=== PATIENT | female | born 2005 | race Caucasian/White ===

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

== ENCOUNTER 2025-01-23 12:17 | Outpatient (CLI) | payer OTHER, SELFPAY | END 2025-01-23 12:18 | disposition home or self-care (01) | LOC: NFLDREF 01-26 06:59 | PROVIDERS: Visit Provider Obstetrics & Gynecology | DX: Z34.03 Encounter for supervision of normal first pregnancy, third trimester (principal) | CPT/HCPCS: 86592 ==

== ENCOUNTER 2025-03-18 10:17 | Outpatient (CLI) | payer OTHER, SELFPAY | END 2025-03-18 10:18 | disposition home or self-care (01) | LOC: NFLDREF 03-19 15:52 | PROVIDERS: Visit Provider Midwife | DX: Z34.03 Encounter for supervision of normal first pregnancy, third trimester (principal) | CPT/HCPCS: 87081; 87653 ==

== ENCOUNTER 2025-03-30 06:46 | Inpatient (IN) | payer OTHER, SELFPAY ==
[2025-03-30] VITALS (58 sets, daily range): BP systolic 117–135; BP diastolic 59–85; PULSE 66–116; RESP 16–22; TEMP 36.4–36.9; O2SAT 91–100; BMI 31.1
[2025-03-30 06:36] LABS: Amnisure Rom* POSITIVE
--- NOTE | 2025-03-30 08:00 | P.LDBA_ITS ---
Subjective History of Present Illness Date Seen: 03/30/25 Narrative: Patient is being admitted to Labor and Delivery for SROM at 0355. She is GBS positive and declining antibiotics at this time, has signed a declination form. She is a 19 year old at 38.1 weeks gestation. Her full history and physical was dictated by Hodan Dukes CNM on 03/25/25. Please see this for details. Specific Issues/Plans G 1 P 0 It is a boy! H&P 03/25/25 by Hodan Dukes CNM Fiance: Gilbert Getting soon! Hep B nonimmune. Discuss at visit 12/07/2024 # Iron Deficiency Anemia Hgb 10.1. Ferritin 6.8. Rec. qod iron supplement. recheck hgb: 11.3 wnl #Anxiety and Depression. Reportedly stable on Lexapro. Lexapro increased to 20 mg QD on 12/07/24 Flu: 10/12/2024 Covid: Declined. Tdap: OB - Problem Based A/P Additional Plan (1) SROM (spontaneous rupture of membranes): Status: Acute (2) Pain during labor: Status: Acute (3) 38 weeks gestation of : Status: Acute Plan Assessment:?? at 38.1 weeks gestation?? GBS positive? Patient is coping well with challenges of labor.?? Labor type: Spontaneous, Early labor? Category 2 FHR pattern on admission. complicated by: Iron deficiency anemia, Anxiety and Depression Plan:?? * ?Admit to L & D? * IV access: none * Monitoring per policy: intermittent once additional monitoring is reassuring. * Candidate for analgesia of choice.? Planning unmedicated for pain management * Desires waterbirth.? Consent signed and Hep C negative * Expectant management at this time * GBS positive, declining treatment. Discussed recommendation with patient and declination form signed. Encouraged to consider if long labor due to her ruptured membranes. ? * Patient encouraged to reposition and ambulate to promote physiologic labor a nd . * Anticipate ? Delivery/Labor/Induction Plan Plan: expectant management OB Exam Physical Exam Vital signs: Temp Pulse Resp BP Pulse Ox 98.2 F 71 16 118/75 97 03/30/25 07:32 03/30/25 07:33 03/30/25 07:32 03/30/25 07:33 08 07:33 Narrative: Vitals Reviewed Constitutional:? Alert and oriented x3 HEENT:? Normocephalic, atraumatic Neck:? Supple Lungs:? Clear to auscultation bilaterally Heart:? Regular rate and rhythm, no murmur, rub or gallop Abdomen:? Soft, nontender, and gravid. Vertex by Sg's, confirmed with cervical exam per RN. Extremities:? No edema or erythema Cervix: 3.5 cm/70% per RN NST: [] bpm/[] variability/[]accelerations/[]decelerations/[]contractions Detailed Labor and Delivery Exam Patient Gravid: yes
[2025-03-30] MEDS: CITALOPRAM HYDROBROMIDE 20 MG TABLET PO (09:00)
--- NOTE | 2025-03-30 11:59 | PM.OBPNL ---
Subjective Date Seen: 03/30/25 Narrative: ?Prudence is coping well with labor pain/contractions. She reports contractions feel about the same intensity but are more frequent. She continues to leak clear fluid and has had a small amount of pink discharge. ?Gilbert and her mom are with her for support. ?She is using repositioning and relaxation for comfort and pain management.? Objective Exam: VSS, afebrile General Appearance:? Calm, cooperative. ?No acute distress. ? Psychiatric Exam: Alert and oriented, appropriate affect Abdomen: Gravid Ctx: ?Q 2-4 min apart. ?Moderate ? FHTs: ?intermittent monitoring 145 SVE: deferred at this time per pt preference Membranes: ?SROM at 0355 clear Vital Signs: Last Vital Signs Temp 97.5 F L 03/30/25 11:26 Pulse 71 03/30/25 07:33 Resp 16 03/30/25 07:32 BP 118/75 03/30/25 07:33 Pulse Ox 97 03/30/25 07:33 Plan Plan: Assessment:?? at 38.1 weeks gestation?? GBS positive, pt does not want to be treated with antibiotics at this time Patient is coping well with challenges of labor.?? Labor type: Spontaneous, Early labor? complicated by: Iron deficiency anemia, Anxiety and Depression Labor complicated by: nothing at this time? Plan:?? Continue with routine intrapartum cares as ordered.?? Patient encouraged to move and change positions to promote physiologic labor and .?? Nonpharmacologic comfort measures per patient preference. Candidate for analgesia of choice if desired. Patient planning waterbirth Anticipate progress to NVD. ?
--- NOTE | 2025-03-30 16:22 | PM.OBPNL ---
Subjective Date Seen: 03/30/25 Narrative: ?Prudence is coping well with labor pain/contractions. ?Gilbert and her mom are with her for support. ?She is reporting regular contractions that she is breathing through. Took a nap earlier in the day and has been up walking in the halls, changing positions often and doing side lying release. ? Objective Exam: VSS, afebrile General Appearance:? Calm, cooperative. ?No acute distress. ? Psychiatric Exam: Alert and oriented, appropriate affect Abdomen: Gravid Ctx: ?unclear how often has not been on the monitor. Pt could not tell how often ?Mild ?Moderate ? FHTs: ?140's with audible increases and no decreases heard by doppler SVE: /-1 Membranes: ?SROM clear, forbag present Vital Signs: Last Vital Signs Temp 98.1 F 03/30/25 15:29 Pulse 75 03/30/25 12:31 Resp 20 03/30/25 12:28 BP 117/71 03/30/25 12:31 Pulse Ox 97 03/30/25 12:28 Plan Plan: Assessment:?? at 38.1 weeks gestation?? GBS postive Patient is coping well with challenges of labor.?? Labor type: Spontaneous, Early labor? Reassuring FHR with intermittent monitoring complicated by: Iron deficiency anemia, anxiety and depression on SSRI Labor complicated by: none at this time? Plan:?? Recommended Antibiotic prophylaxis treatment per protocol due to 12+ hours since SROM, pt is declining at this time Continue with routine intrapartum cares as ordered.?? Patient encouraged to move and change positions to promote physiologic labor and .?? Nonpharmacologic comfort measures per patient preference. Candidate for analgesia of choice if desired. Patient planning waterbirth Anticipate progress to NVD. ?
--- NOTE | 2025-03-30 17:04 | PM.OBPNL ---
Subjective Date Seen: 03/30/25 Narrative: Prudence is open to treating for GBS after having some time to discuss with her and mother. She would like to get the first dose and then is open to breaking her forebag to see if this will help augment her labor. She reports contractions are intermittently strong then more mild in intensity. Objective Exam: VSS, afebrile General Appearance:? Calm, cooperative. ?No acute distress. ? Psychiatric Exam: Alert and oriented, appropriate affect Abdomen: Gravid Ctx: ?Q 4-5 min apart. ?Mild to moderate FHTs: ?Baseline: 145. ? ? Variability: moderate. ?Accels: +. ? ?Decels: ?rare late. SVE: deferred at this time Membranes: ?SROM at 0355 Vital Signs: Last Vital Signs Temp 98.5 F 03/30/25 16:33 Pulse 75 03/30/25 16:34 Resp 20 03/30/25 16:33 BP 126/77 03/30/25 16:34 Pulse Ox 97 03/30/25 16:30 Plan Plan: Assessment:?? at 38.1 weeks gestation?? GBS positive Patient is coping well with challenges of labor.?? Labor type: Spontaneous, Early labor? Category 2 FHR pattern.? complicated by: Iron deficiency anemia, anxiety and depression Labor complicated by: slow progression after SROM >12 hours ago? Plan:?? Antibiotic prophylaxis treatment per protocol to start now Pt requested AROM of forebag once first dose of antibiotics are completed Continue with routine intrapartum cares as ordered.?? Patient encouraged to move and change positions to promote physiologic labor and .?? Nonpharmacologic comfort measures per patient preference. Candidate for analgesia of choice if desired. Patient planning waterbirth Anticipate progress to NVD. ?
[2025-03-30] MEDS: LACTATED RINGERS 1000 ML 1,000 ML 125 ML IV ×2 (17:36→21:33)
[2025-03-30] MEDS: AMPICILLIN 2 GM in 0.9 % SODIUM CHLORIDE Mini-bag 100 ML IVPB (17:45)
[2025-03-30] MEDS: ACETAMINOPHEN 500 MG TABLET 1000 MG PO ×2 (17:52→23:35)
--- NOTE | 2025-03-30 19:04 | PM.OBPNL ---
Subjective Date Seen: 03/30/25 Narrative: ?Prudence is coping well with labor pain/contractions. Gilbert is with her for support. ?She has now had her first dose of antibiotics for GBS positive status. Reviewed risks of AROM of forebag with them and she wanted to move forward at this time. Objective Exam: VSS, afebrile General Appearance:? Calm, cooperative. ?No acute distress. ? Psychiatric Exam: Alert and oriented, appropriate affect Abdomen: Gravid Ctx: ?Q 5-7 min apart. ?Mild to ?Moderate FHTs: recently placed back on EFM unable to document at this time SVE: / Membranes: SROM now with AROM of forebag, meconium stained fluid Vital Signs: Last Vital Signs Temp 98.4 F 03/30/25 19:01 Pulse 88 03/30/25 19:00 Resp 20 03/30/25 19:01 BP 130/78 03/30/25 19:00 Pulse Ox 97 03/30/25 19:00 Plan Plan: Assessment:??G 1 P 0 at 38.1 weeks gestation?? GBS positive Patient is coping well with challenges of labor.?? Labor type: Augmented, Early labor?? complicated by: iron deficiency anemia, anxiety and depression Labor complicated by: meconium stained fluid Plan:?? Antibiotic prophylaxis treatment per protocol Continue with routine intrapartum cares as ordered.?? Continuous monitoring for meconium stained fluid Patient encouraged to move and change positions to promote physiologic labor and .?? Nonpharmacologic comfort measures per patient preference. Candidate for analgesia of choice if desired. Patient planning waterbirth Anticipate progress to NVD. ?
[2025-03-30 20:21] LABS: Hematocrit 41.9 % (33.0-51.0); Hemoglobin* 14.2 gm/dL (12.0-16.0); Immature Granulocytes Pct Auto 0.3 %; Mean Corpuscular HGB Conc 34 gm/dL (32-36); Mean Corpuscular Hemoglobin 32 pg (26-34); Mean Corpuscular Volume 93 fL (80-100); RDW Coefficient of Variation % 14.5 % (11.5-15.5); Red Blood Count 4.49 m/uL (4.00-5.20); White Blood Count* 12.88 K/uL (4.50-11.00)
[2025-03-30 20:22] LABS: Immature Granulocytes Abs Auto 0.00 K/uL (0.00-0.30); Lymphocytes Absolute Auto 2.20 K/uL (0.90-2.90); Slide Review Reflex No
--- NOTE | 2025-03-30 21:20 | P.OBPN_ITS ---
Subjective Date Seen: 03/30/25 Narrative: ?Prudence is struggling to cope with contractions at this time. She has a strong urge to push but is not fully dilated. FHR was tachycardic for some time she was started on an IV bolus and repositioned to her side which improved the tracing. She has bloody show and a FSE was placed due to the concerns with FHR tracing. Prudence has been stating she doesn't thing she can do this anymore and having difficulty not pushing with her contractions. She is needing to be coached thro [facility] each contraction. Discussed pain management with Prudence and at this time she would like to get an epidural. She had tried using nitrous but had a strong reaction while using and passed out for approximately 30 seconds after breathing deeply during a contraction. She has since used the nitrous by taking only one breath with contraction and did not have that same reaction. Requested OB suction operator to come to bedside for concerns with the FHR possibly requiring assistance for delivery. Objective Exam: VSS, afebrile General Appearance:? Calm, cooperative. ?No acute distress. ? Psychiatric Exam: Alert and oriented, appropriate affect Abdomen: Gravid Ctx: ?Q 2 min apart. ? ? ?Strong FHTs: ?Baseline: 120. ? ? Variability: moderate. ?Accels: -. ? ?Decels: ?variables. SVE: 8/90/0 Membranes: SROM meconium Vital Signs: Last Vital Signs Temp 98.2 F 03/30/25 20:59 Pulse 86 03/30/25 20:59 Resp 20 03/30/25 20:59 BP 124/59 L 03/30/25 20:59 Pulse Ox 97 03/30/25 21:18 Plan Plan: Assessment:?? at 38.1 weeks gestation?? GBS positive Patient is coping with challenges of labor.?? Labor type:Augmented, Active labor? Category 2 FHR pattern.? complicated by: iron deficiency anemia, anxiety and depression Labor complicated by: thick meconium stained fluid, persistent Category 2 ?tracing Plan:?? Consult OB suction operator to review FHR tracing and possible need for assisted delivery Antibiotic prophylaxis treatment per protocol, first dose given due for second dose at 2230 Continue with routine intrapartum cares as ordered.?? Patient encouraged to move and change positions to promote physiologic labor and .?? Nonpharmacologic comfort measures per patient preference. Candidate for analgesia of choice if desired. Preparing patient for epidural as requested. Patient planning waterbirth, now risks out due to thick meconium stained fluid Anticipate progress to NVD. ?
--- NOTE | 2025-03-30 21:40 | PM.OBCN1 ---
OB - CN: HPI Date of Consult Date Seen: 03/30/25 Consult date: 03/30/25 Requesting Physician: Shy Morrissey CNM Primary Care Provider: Not a Local Provider Consult Narrative Narrative: The patient is a 19 year old G 1 P 0 woman at 38 weeks, 1 day gestation that was admitted to the [facility] on 03/30/25 for premature rupture membranes at term. She is a patient of the educational audiologist service. I was consulted in her care at 9:30 p.m.. tracing is reviewed beginning around 6:30 p.m.. Initially, at that time, baseline was 150. There were periods of what may have represented prolonged accelerations or tachycardia with recurrent deep variable decelerations, but these decelerations went to 150s during this time. Since 8:52 p.m., baseline appears to be around 115 with moderate variability. Accelerations are present. There are recurrent variable decelerations and a few early decelerations since 9:20 p.m.. Contractions are occurring every 2 minutes. At the time my 1st evaluation of the patient, she had just been found to be complete. She was pushing under the guidance of Shy Morrissey with head visible at the introitus. Ultimately, due to recurrent and prolonged decelerations, I opted to intervene with episiotomy; see delivery note for full detail. History History 1 Elective abortions Para 0 Spontaneous abortions Hx # Term Pregnancies Ectopic pregnancies Hx # Pregnancies Multiple births Number of Living Children 0 Labs GBS status: positive OB Labs: Lab Assessment Start: 03/30/25 06:38 Freq: ONCE Status: Complete Protocol: PC.OBGBS Activity Type Activity Date Activity User E-sign Co-sign Detail Recorded Client Recorded Date Recorded By Document 03/30/25 17:20 [facility] No Response 03/30/25 17:26 [facility] 03/30/25 17:20 Lab Assessment GBS Status positive Is Patient Allergic to Penicillin? No Maternal Blood Type A Maternal RH Factor Positive Evaluate Maternal Rubella Immune Status Immune Hepatitis B Surface Antigen Negative Maternal HIV Status Negative Maternal Syphillis (RPR) Status Negative [facility] Medical History Concussion ?S06.0XAA - Concussion with loss of consciousness status unknown, initial encounter (ICD-10) Anxiety ?F41.9 - Anxiety disorder, unspecified (ICD-10) Depression ?F32.A - Depression, unspecified (ICD-10) Family History Mother Depression Anxiety Brain cancer Father Depression Anxiety Social History What is your current living situation?: I presently have a place to live Problems where you live: no known problems In the past 12 months, utilities in danger of being shut off: no In past 12 months, lack of transportation kept you from medical appts, meetings, work, or getting things needed for daily living: no In the past 12 mos, have been you worried that your food would run out before you had money to buy more?: never true In the past 12 mos, the food you bought just didn't last and you didn't have money to buy more?: never true Smoking Status: Never smoker How often does anyone, including family, friends and others, physically hurt you: never How often does anyone, including family, friends and others, insult or talk down to you: never How often does anyone, including family, friends and others, threaten you with harm: never How often does anyone, including family, friends and others, scream or curse at you: never Meds Home Medications and Allergies Home Medications ?Medication ?Instructions ?Recorded ?Confirmed ?Type docosahexaenoic acid 200 mg 200 mg PO 09/21/24 03/25/25 History capsule ( DHA) ondansetron HCl 4 mg tablet 4 mg PO Q8H 09/21/24 03/25/25 History ferrous sulfate 325 mg (65 mg 325 mg PO Q OTHER DAY #90 tabs 09/25/24 03/30/25 Rx iron) tablet,delayed release citalopram 20 mg tablet 20 mg PO QDAY #60 tabs 03/04/25 03/30/25 Rx famotidine 20 mg tablet 20 mg PO BID #60 tabs 03/04/25 03/30/25 Rx ondansetron 4 mg disintegrating 4 mg PO Q6-8H #30 tabs 03/04/25 03/30/25 Rx tablet Allergies Allergy/AdvReac Type Severity Reaction Status Date / Time No Known Drug Allergies Allergy Verified 03/25/25 10:58 OB - H&P: Exam Physical Exam: Vital signs: Temp Pulse Resp BP Pulse Ox 98.2 F 86 20 124/59 L 91 03/30/25 20:59 03/30/25 20:59 03/30/25 20:59 03/30/25 20:59 03/30/25 21:38 Narrative: as above; +3 station OB - Results Labs Labs: Short CBC 03/30/25 Range/Units 20:13 WBC 12.88 H (4.50-11.00) K/uL Hgb 14.2 (12.0-16.0) gm/dL Hct 41.9 (33.0-51.0) % Plt Count 179 (140-440) K/uL OB - CN: A/P Assessment and Plan (1) SROM (spontaneous rupture of membranes): Status: Acute (2) Pain during labor: Status: Acute (3) 38 weeks gestation of : Status: Acute Plan Episiotomy to hasten delivery.
[2025-03-30] MEDS: PHENYLEPHRINE 100 MCG/ML SYRINGE IVP (21:49)
[2025-03-30] MEDS: LIDOCAINE 1 % PF 30 ML INJECTION (21:50)
[2025-03-30] MEDS: OXYTOCIN 30 unit/500 ML in NS 30 UNIT/500 ML BAG 300 UNIT IVPB (22:03)
--- NOTE | 2025-03-30 22:33 | W.PM.VAGDEL1 ---
Procedure Delivery date: 03/30/25 Procedure Done: Global Procedure Details: The patient is a 19 year-old G 1 P 0 woman admitted on 03/30/2025 at 38 Weeks, 1 Day gestation for early labor.? Cervical exam on admission was 3.5 cm/60 % effaced/-1 station with membranes ruptured in vertex presentation.? Contractions were regular.? heart rate demonstrated baseline 150 bpm with moderate variability, positive accelerations, no decelerations; a category 1 tracing.? SROM had occurred at 3:50 a.m. with clear fluid. Later, with AROM of forebag, meconium-stained fluid was noted. ? Labor Analgesia:? Intermittent use of nitrous oxide ? Pitocin:? No ? Labor onset:? 4:12 p.m. Active phase labor was notable for category 2 tracing and change in baseline to 110 beats per minute. I was consulted for management of category 2 tracing; patient was then found to be completely dilated with head at +3 station. ? Complete:? 9:43 p.m. ? Pushing:? 9:43 p.m. ? heart tones during second stage were notable for prolonged decelerations with sharda is a in to the 70s. The 1st of these lasted 4 minutes with brief recovery, and the 2nd then lasted for 5 minutes before an episiotomy was performed. The bladder was 1st drained with sterile red rubber catheter. The perineal body was injected with a small amount of 1% lidocaine. Scalpel was used to perform an episiotomy just slightly to the right of midline; it did not extend far along the perineal body. The infant was born with the next contraction. ? At 9:54 p.m. a viable male infant delivered in vertex VAN presentation with restitution to LOT over episiotomy via spontaneous vaginal delivery.? Infant was placed on maternal abdomen.? Cord was clamped and cut after it ceased to pulse.? Nose and mouth were bulb suctioned.? Infant weight pending.? 8 at 1 minute and 9 at 5 minutes.? Shoulder dystocia: No.? Nuchal cord: No. ? Placenta delivered spontaneously and complete at 10:07 p.m. with a 3 vessel cord. ? Mother and infant were stable after delivery. ? Lacerations:? Second-degree perineal, repaired with 2-0 and 3-0 Vicryl in the usual fashion after infiltration with a total of approximately 15 mL of 1% lidocaine. ? Blood loss: 450 mL. Blood loss measurement type: QBL ? Sponge and needles counts are correct. Delivery monitor: internal FHT Route of delivery: Episiotomy description: Right Mediolateral Laceration description: Perineal - 2nd Degree Delivery repair: Vicryl Estimated blood loss (mL): 450 Anesthesia type: Local
[2025-03-31 00:23] VITALS: BP 110/71; PULSE 88; RESP 20; TEMP 36.8; O2SAT 99
[2025-03-31] MEDS: IBUPROFEN 600 MG TABLET PO ×4 (02:32→23:28)
[2025-03-31 04:18] VITALS: BP 103/64; PULSE 91; RESP 20; TEMP 36.8; O2SAT 98
[2025-03-31 05:24] LABS: Hemoglobin* 11.6 gm/dL (12.0-16.0)
[2025-03-31] MEDS: ACETAMINOPHEN 500 MG TABLET 1000 MG PO ×2 (06:37→13:46)
[2025-03-31 08:00] VITALS: BP 105/64; PULSE 66; RESP 16; TEMP 36.6; O2SAT 98
--- NOTE | 2025-03-31 09:41 | PM.OBPNVD1 ---
OB - PN:Subj Subjective Date Seen: 03/31/25 Narrative: Prudence is a 19 y.o. who was admitted to [facility] & [facility] for SROM at home.? She had a NVD with episiotomy.? ?? The patient feels well.? The pain is well controlled with current medications.? She has no new complaints.? She is breast feeding and reports things are going well.? the patient has done well.? Vitals have been stable.? She has remained afebrile.? Has a good appetite, is tolerating a general diet.? She is voiding without difficulty.? She is passing gas and has not had a bowel movement.? She is ambulating and denies any dizziness.? Has Small amount of rubra lochia.? OB - PN: Obj Exam Physical Exam: Vital signs: Temp Pulse Resp BP Pulse Ox O2 Del Method 97.8 F 66 16 105/64 98 Room Air 03/31/25 08:00 03/31/25 08:00 03/31/25 08:00 03/31/25 08:00 03/31/25 08:00 03/31/25 08:00 Narrative: GENERAL APPEARANCE:? normal affect, alert, no distress? MOOD:? appropriate? HEENT: normocephalic, neck supple, full ROM? CHEST:? Symmetrical chest wall movement.? Normal respiratory effort.? Clear to auscultation ? HEART:? regular rate and rhythm? ABDOMEN:? soft, non-tender. Uterine fundus is firm, 1 below Umbilicus, Midline and is appropriate for the stage of recovery.? Bowel sounds present.? PERINEUM:? mild edema of the perineum, there is a 2nd degree laceration that is healing well.? EXTREMITIES:? normal and no edema? OB - PN: Obj Data Labs Labs: Laboratory Results - last 24 hr 03/30/25 03/31/25 20:13 05:19 WBC 12.88 H RBC 4.49 Hgb 14.2 11.6 L Hct 41.9 MCV 93 MCH 32 MCHC 34 RDW Coeff of Tam 14.5 Plt Count 179 Neut % (Auto) 74.6 H Lymph % (Auto) 17.0 L [place] % (Auto) 7.4 Eos % (Auto) 0.5 Baso % (Auto) 0.2 Neut # (Auto) 9.60 H Lymph # (Auto) 2.20 [place] # (Auto) 1.00 H Eos # (Auto) 0.10 Baso # (Auto) 0.00 Abs Immat Gran (auto) 0.00 Imm/Tot Granulo (auto) 0.3 Blood Type A Positive Antibody Screen NEGATIVE OB - PN: A/P Delivery Assessment and Plan (1) care and examination immediately after delivery: Status: Acute (2) Lactating mother: Status: Acute Plan day: 1 Plan: routine care Comments: G 1 P 1 status post NVD??? 1.? Continue route PP cares? 2.? .? May see if desired? 3.? Anticipate discharge home tomorrow?
[2025-03-31] MEDS: DOCUSATE SODIUM 100 MG CAPSULE PO (10:16)
[2025-03-31 12:18] VITALS: BP 109/66; PULSE 78; RESP 16; TEMP 36.7; O2SAT 99
[2025-03-31] MEDS: CITALOPRAM HYDROBROMIDE 20 MG TABLET PO (13:47)
[2025-03-31 16:30] VITALS: BP 115/64; PULSE 70; RESP 16; TEMP 36.9; O2SAT 100
[2025-03-31 20:16] VITALS: BP 114/77; PULSE 83; RESP 18; TEMP 37
[2025-04-01 00:25] VITALS: BP 134/88; PULSE 88; RESP 16; TEMP 36.9; O2SAT 99
--- NOTE | 2025-04-01 08:02 | P.DS_ITS ---
DS: Providers Provider Date Seen: 04/01/25 Date of admission: 03/30/25 06:46 Primary care physician: Not a Local Provider Admitting Clinician: Meron Interiano CNM Consults: 03/30/25 22:39 Consult to Physician [CONS] Routine Comment: Consulting Provider: Gwen Young Has provider been notified: Yes 04/01/25 00:12 Consult to Oceanology Teacher [CONS] Routine Comment: Reason for Consult:: Social Service Consult Discharge Planning Needs Attending Physician on discharge: Meron Interiano CNM Date of Discharge: 04/01/25 DS: Diagnosis Discharge Diagnosis (1) care and examination immediately after delivery: Status: Acute (2) Lactating mother: Status: Acute Exam Narrative: Exam Narrative: GENERAL APPEARANCE:? normal affect, alert, no distress MOOD:? appropriate CHEST:? clear to auscultation HEART:? regular rate and rhythm ABDOMEN:? soft, non-tender the uterine fundus is 1 finger-breath below Umbilicus, Midline and is appropriate for the stage of recovery. PERINEUM:? mild edema of the perineum, there is a Perineal repair that is well approximated with minimal bruising, no erythema, and no abnormal discharge. EXTREMITIES:? normal and mild edema Const: Vital Signs, click to edit/add: Vital Signs - 24 hr 03/31/25 12:18 03/31/25 16:30 03/31/25 20:16 Temperature 98.0 F 98.4 F 98.6 F Pulse Rate [Blood Pressure Cuff] 78 70 83 Respiratory Rate 16 16 18 Blood Pressure [Le ft Arm] 109/66 115/64 114/77 Pulse Oximetry 99 100 Oxygen Delivery Me thod Room Air Room Air 04/01/25 00:25 Temperature 98.4 F Pulse Rate [Blood Pressure Cuff] 88 Respiratory Rate 16 Blood Pressure [Le ft Arm] 134/88 Pulse Oximetry 99 Oxygen Delivery Me thod Room Air OB - DS: Summary Hospital Course Hospital Course: Prudence is a 19 y.o. G 1 P 1 who was admitted to L & D for spontaneous labor.? She had a NVD that was complicated distress which prompted an episiotomy by Dr. Mittal. The patient feels well.? The pain is well controlled with current medications.? She has no new complaints.? She is breast feeding and reports things are going fairly well. Using nipple shield and has an appointment with Tuesday. the patient has done well.? Vitals have been stable.? She has remained afebrile.? Has a good appetite, is tolerating a general diet.? She is voiding without difficulty.? She is passing gas and has not had a bowel movement.? She is ambulating and denies any dizziness.? Has scant amount of rubra lochia. She is unsure of choice of contraception. Will discuss more at 2 week appointment. ?? Problems: none ?? plan:? Discharge home with baby.? Follow up in 2 weeks and 6 weeks.? , may see if needed? Hgb 11.6. ?? Call for signs/symptoms of preeclampsia? [place] Peripartum Data Infant delivery method: Vaginal Laceration description: Perineal - 2nd Degree Episiotomy description: Right Mediolateral (2nd degree) complications: none Gender: Male Discharge Plan: Home Status at Discharge Functional status at discharge: independent ambulation Overall status at discharge: patient is progressing back to baseline Time Spent with Patient Time attestation: Total time spent providing and/or coordinating discharge services: Time spent: Less than 30 minutes Discharge Plan Discharge Disposition: Home, Self-Care Date of Admission: 03/30/25 06:46 Attending Provider on Discharge: Meron Interiano Consulting Providers: Gwen Young Primary Care Provider: Provider,Not a Local Condition: Stable Anticipated Discharge Date/Time: 04/01/25 12:00 Discharge Medications: Continued DHA 200 mg capsule 200 mg PO ondansetron HCl 4 mg tablet 4 mg PO Q8H ondansetron 4 mg tablet,disintegrating 4 mg PO Q6-8H Qty: 30 0RF citalopram 20 mg tablet 20 mg PO QDAY Qty: 60 2RF Discontinued famotidine 20 mg tablet 20 mg PO BID Qty: 60 2RF ferrous sulfate 325 mg (65 mg iron) tablet,delayed release (DR/EC) 325 mg PO Q OTHER DAY Qty: 90 1RF Discharge Orders: Discharge Order (Routine); Ordered 04/01/25 Ordered By: Meron Interiano Patient Education: OB Over the Counter Medication Information, OB Vaginal/Breast Feeding Additional Instructions: Discharge instructions were reviewed with the patient including signs and symptoms of infection and home going medications Nothing vaginally for 6 weeks: no tampons or intercourse Do not drive while taking narcotic pain medication(s) Off Work or School for 6 weeks Symptoms to report to doctor: * Bleeding that saturates more than one pad per hour * Passing clots larger than the size of a golf ball * Pain not relieved by prescribed medication * Fever above 100.4 degrees Fahrenheit * A foul vaginal odor * Difficulty in emotions, mood, and functions * Thoughts of hurting yourself and/or * Painful, reddened area in your breast * Any drainage, redness, or tenderness in your IV/epidural site * Severe headache that doesn't improve after taking medications * Changes in vision, including temporary loss of vision, blurred vision, and/or light sensitivity * Upper abdominal pain (usually under ribs on the right side) * Decrease in urination or painful, frequent urinating * Chest pain * Shortness of breath * Tenderness or pain with redness and/swelling in the calf(s) of your leg 2-week visit: discuss infant feeding concerns, review control options and screen for anxiety/depression. 6-week visit for an annual exam. consultation services are available to all mothers and babies for the first year after delivery.? To make an appointment, please call [phone]. Activity Level: Activity as Tolerated and No strenuous activity Discharge Diet: Regular Follow Up Appointments: [facility] [Provider Group] Forms: MyHealth Info Instructions Discharge Comments: Nora Martins APRN, CNM, was present for visit and have reviewed and agree with documentation by the Certified Nurse Midwifery Student.
[2025-04-01] MEDS: ACETAMINOPHEN 500 MG TABLET 1000 MG PO (09:19)
[2025-04-01] MEDS: DOCUSATE SODIUM 100 MG CAPSULE PO (09:19)
[2025-04-01] MEDS: CITALOPRAM HYDROBROMIDE 20 MG TABLET PO (09:19)
[2025-04-01 09:20] VITALS: BP 114/76; PULSE 81; RESP 16; TEMP 36.5; O2SAT 97
--- NOTE | 2025-04-01 11:56 | PC.SOCIAL ---
Social Service Consult: SW met with patient and who state they are doing well. Patient had a question about adding baby to insurance. Patient reports that she tried to get him on state insurance before delivery, but it didn't work. SW explained that the state won't enroll a baby until . SW provided information for [employer] as an organization that can assist with the process of getting baby insurance. Patient and also didn't know how it would work with their parents insurance. SW discussed that sometimes baby's can be on their grandparents insurance, but their parents would need to reach out to their HR to determine if this is a possibility. Patient and expressed understanding. Patient states that she has a very supportive family and that she has two sisters and a friend that would be there right away if she needed anything. Patient's states that he has a couple of friends he talks to sometimes and some family support, but seems more limited. SW discussed PMADS. Patient and state that they are aware of the signs and symptoms, but didn't know what this would look like for himself. SW explained that the signs and symptoms would be very similar and provided a handout on signs and symptoms as well as a sheet from [place] [employer] if either felt they needed/wanted that support and connection of groups. SW also discussed the Mothers and Babies program through [facility], and left a handout for them. SW also discussed ECFE classes and provided them resources for their district. Patient and discussed how they just signed a lease for a place while patient was at the hospital and will be moving in after discharge. Patient states her mom is helping unpack everything so it will be ready for them. SW explored concerns for any financial worries as they move into their own place. Patient and state they feel they will be able to manage and are connected to WIC and will be applying for SNAP. SW did discuss and provide them information for [facility], in case they do feel stressed in the future. SW explained that if any other questions arise they can ask for SW prior to discharge and if they have concerns they can discuss those with clinic providers who will assist in connecting with SW if future needs arise.
== END 2025-04-01 16:58 | disposition home or self-care (01) | DRG 807 ==
LOC: OB OUT 06:46 → OB 06:46
PROVIDERS: Advanced Practice Midwife; Admitting Provider Midwife; Visit Provider Midwife
DX: O99.824 Streptococcus B carrier state complicating childbirth (principal); Z37.0 Single live birth; O77.0 Labor and delivery complicated by meconium in amniotic fluid; O70.1 Second degree perineal laceration during delivery; O76 Abnormality in fetal heart rate and rhythm complicating labor and delivery; O99.02 Anemia complicating childbirth; D50.9 Iron deficiency anemia, unspecified; O99.344 Other mental disorders complicating childbirth; F41.9 Anxiety disorder, unspecified; F32.A Depression, unspecified; Z3A.38 38 weeks gestation of pregnancy
CPT/HCPCS: 36415; 84112; 85018; 85025; 86592; 86850; 86900; 86901; A9270; J0290; J2003; J7120

== ENCOUNTER 2025-04-03 13:00 | Outpatient (CLI) | payer OTHER, SELFPAY ==
--- NOTE | 2025-04-03 15:40 | W.PM.LAC.MC ---
Consult Note - Mom Date of Visit Date of visit: 04/03/25 Reason for consultation: Assistance Needed Visit Code: Visit Patient's Information Phone number: [phone] : 1 Para: 1 Allergies No Known Drug Allergies Allergy (Verified 03/25/25 10:58) Mother's Medical History: Medical History (Updated 04/02/25 @ 00:01 by Background Daamber) Iron deficiency ?E61.1 - Iron deficiency (ICD-10) Vitamin D deficiency ?E55.9 - Vitamin D deficiency, unspecified (ICD-10) Concussion ?S06.0XAA - Concussion with loss of consciousness status unknown, initial encounter (ICD-10) Anxiety ?F41.9 - Anxiety disorder, unspecified (ICD-10) Depression ?F32.A - Depression, unspecified (ICD-10) Work Plans: return to work Jun or Jul, 1 day/week Delivery Information Gestational Age: 38+1 Gestational Weight For Age: AGA Weight: 2.82 kg Discharge Weight: 2.702 kg Percentage weight loss: 4.2 Baby's Information Baby's Age at Visit: 4 days Baby's Provider or Clinic: [facility] Jaundice: No Past Experience Past Experience: No Current Frequency of Day Feedings: every 2-2.5 hours Frequency of Night Feedings: 2.5-3 hours Both Breasts: No (offering, but usually takes one side) Suck: strong Latch: with nipple shield Length of Time: 15-20 minutes Goals: 1 year Pumping Pumping: No Supplementing EBM Supplement: No Formula Supplement: No Baby Elimination Number of Wet Diapers a Day: 4 so far today Number of BM a Day: 4 so far today, green/yellow in color and some seediness Breast/Nipple Condition Breast Information: Breasts are symmetrical with rounded lower quadrants, intramammary distance is less than 1.5 inches. No erythema. Nipples are supple, everted prior to feeding. Breast Shape: Round Engorgement: No Maternal Nipple Condition - Left: Short Maternal Nipple Condition - Right: Short Sore Nipples: Yes (slight) Interventions for Sore Nipples: Lansinoh/Nipple Cream Baby Assessment Skin: Normal Tongue/frenulum: Restricted mid-range Palate: Average Lips: Relaxed and Symmetrical Jaw Alignment: Symmetrical Mucosa: [place], moist Onsite Observation Pre-Feed weight: 2.704 kg Post-Feed weight: 2.736 kg Milk Transferred (mL): 32 Position: Cross cradle Attachment/latch-on achieved: Easily (on right after feeding on left with nipple shield) and With nipple shield (on left) Suck pattern: Suck burst and normal rest Swallow: Audible, consistent and Gulping (when latched without shield) Behavior following feed: Alert, content Pre-Nursing Left Nipple: Within Normal Limits Pre-Nursing Right Nipple: Within Normal Limits Post-Nursing Left Nipple: Within Normal Limits (nipple pulled into shield) Post-Nursing Right Nipple: Within Normal Limits Assessments/Interventions Assessments/Interventions: Babe latched to mom's LEFT breast, latched with shield after attempts without shield and stayed nursing for 15 minutes. Transferred 12 ml of milk Babe then latched to mom's RIGHT breast, latched easily with breast sandwich technique and nursed for another 8 minutes. Transferred 20 ml of milk. Total transferred: 32 ml Babe needed gentle support to stay latched given combination of mom's short nipple and babe's tethered tongue. Family was told today that baby's tongue tie likely adding to difficulty with latching. Tongue ties/tethered oral tissues discussed with family, how they affect feeding, resources/options discussed and questions answered. Parents will consider options to decide next steps. Education provided: Early feeding cues to maximize timing of latching, Asymmetric latch technique for wide/deep latch to increase milk, Transfer for baby and increase comfort for mom, Supply/demand nature of milk supply, Need for frequent stimulation/milk removal, Sore nipple treatment options, Alternative feeding methods (SNS, cup, finger feeding, bottling), Use of nipple shield, Pumping for milk management and Milk collection, storage Handouts Provided: Tongue tie release providers Suck training exercises Feeding Plan: Continue to attempt feeding without shield since he was able to latch here without shield and he transfers more milk without shield Mom can use the hand pump she has to help draw out her nipple to help this process Use the shield if needed, discussed importance of deep latch for maximal milk transfer. Always offer both breasts ea feeding; if he won't nurse both sides and mom is uncomfortable, ok to use the hand pump to relived some of the fullness of her breast. Follow-Up Recommend baby be seen by provider for:: Tethered oral tissue release consult Time Spent Time spent with patient (min): 90 (revieweing EMR and face to face with patient, and ) Meds Home Medications and Allergies Home Medications ?Medication ?Instructions ?Recorded ?Confirmed ?Type docosahexaenoic acid 200 mg 200 mg PO 09/21/24 03/25/25 History capsule ( DHA) ondansetron HCl 4 mg tablet 4 mg PO Q8H 09/21/24 03/25/25 History citalopram 20 mg tablet 20 mg PO QDAY #60 tabs 03/04/25 03/30/25 Rx ondansetron 4 mg disintegrating 4 mg PO Q6-8H #30 tabs 03/04/25 03/30/25 Rx tablet Allergies Allergy/AdvReac Type Severity Reaction Status Date / Time No Known Drug Allergies Allergy Verified 03/25/25 10:58
== END 2025-04-03 13:01 | disposition home or self-care (01) ==
PROVIDERS: Visit Provider Midwife
DX: Z39.1 Encounter for care and examination of lactating mother (principal)
CPT/HCPCS: G0463